=== PATIENT | female | born 2005 | race African-American/Black ===

== ENCOUNTER → 2024-03-05 | Outpatient (CLI) | payer OTHER ==
[2024-03-05 08:33] LABS: Eosinophils # (auto) 0.2 10 ^3/uL (0-0.8); Eosinophils % (auto) 1.7 % (0.0-7.0); Hematocrit 30.9 % (36.0-46.0); Lymphocytes # (auto) 3.4 10 ^3/uL (0.4-5.4); Mean Corpuscular Hemoglobin 18.3 pg (28.0-32.0); Mean Corpuscular Hgb Conc. 30.3 g/dL (32.0-36.0); Neutrophils % (auto) 60.2 % (37.0-80.0)
[2024-03-05 08:35] LABS: Basophils # (auto) 0 10 ^3/uL (0-0.2); Basophils % (auto) 0.5 % (0.0-2.0); Hemoglobin 9.3 g/dL (12.2-16.2); Lymphocytes % (auto) 30.6 % (10.0-50.0); Mean Corpuscular Volume 60.5 fL (80.0-100.0); Monocytes # (auto) 0.8 10 ^3/uL (0-1.3); Neutrophils # (auto) 6.7 10 ^3/uL (1.6-8.6); Nucleated Red Blood Cells % 0.1 %; Red Blood Cells 5.11 10^6/uL (4.0-5.20); Red Cell Distribution Width 19.9 % (11.8-14.3)
[2024-03-05 08:43] LABS: Urine Blood Negative /uL (Negative); Urine Color Light-Yellow (Yellow); Urine Protein, UAD Negative (Negative); Urine Urobilinogen Normal (Negative); Urine pH 5.5 (5.0-9.0)
[2024-03-05 08:44] LABS: Urine Clarity Clear (Clear)
[2024-03-05 09:04] LABS: Albumin 4.4 g/dL (3.2-4.8); Alkaline Phosphatase 132 U/L (46-116); Anion Gap 5 (5-15); Aspartate Aminotransferase < 8 U/L (13-40); BUN/Creatinine Ratio 11.9 (10.0-20.0); Blood Urea Nitrogen 10 mg/dL (9-23); Calcium 9.5 mg/dL (8.7-10.4); Carbon Dioxide 27 mmol/L (20-30); Chloride 106 mmol/L (98-107); Cholesterol 150 mg/dL (< 200); Glucose 88 mg/dL (74-106); LDL Cholesterol 94 mg/dL (< 100); Potassium 3.8 mmol/L (3.5-5.1); Sodium 138 mmol/L (136-145); Triglycerides 99 mg/dL (< 150)
[2024-03-05 09:05] LABS: Bilirubin, Total 0.5 mg/dL (0.2-1.0); HDL Cholesterol 43 mg/dL (40-59); Total Protein 7.2 g/dL (5.7-8.2)
[2024-03-05 09:06] LABS: Alanine Aminotransferase 9 U/L (7-40)
[2024-03-05 09:12] LABS: % Iron Saturation 7.2 % (15-50)
[2024-03-05 09:42] LABS: Hepatitis B Core Total AB Negative (Negative)
[2024-03-05 11:34] LABS: Hepatitis A Total Antibody Positive (Negative)
[2024-03-05 11:35] LABS: Hepatitis B Surface Antibody Negative (Negative); Hepatitis B Surface Antigen Negative (Negative); Hepatitis C Antibody Negative (Negative)
[2024-03-07 12:47] LABS: Chlamydia Trachomatis, NAA Negative (Negative); Neisseria gonorrhoeae, NAA Negative (Negative); RPR Non Reactive (Non Reactive)
[2024-03-07 21:06] LABS: E005-IgE Dog Dander 4.15 kU/L (Class IV); G002-IgE Bermuda Grass <0.10 kU/L (Class 0); IgE Alternaria alternata <0.10 kU/L (Class 0); IgE Cedar, Mountain 0.14 kU/L (Class 0/I); IgE Cockroach, German <0.10 kU/L (Class 0); IgE Cottonwood <0.10 kU/L (Class 0); IgE Elm, American 0.39 kU/L (Class I); IgE Johnson Grass <0.10 kU/L (Class 0); IgE Mouse Urine <0.10 kU/L (Class 0); IgE Mugwort <0.10 kU/L (Class 0); IgE Penicillium chrysogen <0.10 kU/L (Class 0); IgE Ragweed, Short <0.10 kU/L (Class 0); IgE Rye, Perennial 2.11 kU/L (Class III); Immunoglobulin E 159 IU/mL (6-495); M002-IgE Cladosporium herbaru <0.10 kU/L (Class 0); M003-IgE Aspergillus fumigatu <0.10 kU/L (Class 0); T007-IgE Oak, White <0.10 kU/L (Class 0); T009-IgE Olive Tree <0.10 kU/L (Class 0); T019-IgE Mimosa/Acacia <0.10 kU/L (Class 0); W011-IgE Thistle, Russian <0.10 kU/L (Class 0); W014-IgE Pigweed, Rough <0.10 kU/L (Class 0)
== END | disposition home or self-care (01) ==
LOC: LAB 07:53
DX: Z00.01 Encounter for general adult medical examination with abnormal findings (principal); Z11.3 Encounter for screening for infections with a predominantly sexual mode of transmission; J30.9 Allergic rhinitis, unspecified; E55.9 Vitamin D deficiency, unspecified; D64.9 Anemia, unspecified
CPT/HCPCS: 36415; 80053; 80061; 81003; 82306; 82728; 82785; 83036; 83540; 83550; 84443; 85025; 86003; 86592; 86703; 86704; 86706; 86708; 86803; 87340